=== PATIENT | male | born 1995 | race Caucasian/White ===

== ENCOUNTER 2019-07-26 16:35 | Emergency (ER) | payer OTHER ==
--- NOTE | 2019-07-26 17:44 | EDM.PDOC ---
ED HPI GENERAL MEDICAL PROBLEM - General Chief Complaint: Lower Extremity Injury/Pain Stated Complaint: LT ANKLE INJURY Time Seen by Provider: 07/26/19 17:31 Source of Information: Reports: Patient History Limitations: Reports: No Limitations - History of Present Illness INITIAL COMMENTS - FREE TEXT/NARRATIVE: patient is a 24-year-old male who presents with complaints of pain and swelling to his left ankle. He states he was stepping down off a truck at work and his ankle rolled; however, he is unsure which direction. The pain and swelling is located in the area of the lateral malleolus. he states he has not been able to bear weight since it occurred. She is able to move his toes but is not able to move his foot laterally. He denies any history of previous injury to that extremity. Left Ankle Pain Score (Numeric/FACES): 7 - Related Data Allergies Allergy/AdvReac Type Severity Reaction Status Date / Time Penicillins Allergy Airway Verified 07/26/19 17:19 Tightness Home Meds: Home Meds . [No Known Home Meds] 07/26/19 [History] Review of Systems - Review of Systems Review Of Systems: See Below Constitutional: Reports: No Symptoms Eyes: Reports: No Symptoms Ears: Reports: No Symptoms Nose: Reports: No Symptoms Mouth/Throat: Reports: No Symptoms Respiratory: Reports: No Symptoms Cardiovascular: Reports: No Symptoms GI/Abdominal: Reports: No Symptoms Genitourinary: Reports: No Symptoms Musculoskeletal: Reports: Joint Pain (left ankle), Joint Swelling (left ankle) Skin: Reports: No Symptoms Neurological: Reports: No Symptoms Psychiatric: Reports: No Symptoms ED EXAM, GENERAL - Physical Exam Exam: See Below Exam Limited By: No Limitations General Appearance: Alert, WD/WN, No Apparent Distress Head: Atraumatic, Normocephalic Respiratory/Chest: No Respiratory Distress, Lungs Clear, Normal Breath Sounds, No Accessory Muscle Use Cardiovascular: Normal Peripheral Pulses, Regular Rate, Rhythm, No Murmur Extremities: Other (swelling to left lateral malleoular area. No obvious deformity. CMS intact distal to the injury.) Psychiatric: Normal Affect, Normal Mood Skin Exam: Warm, Dry, Intact, Normal Color, No Rash Course - Vital Signs Last Recorded V/S: Last Vital Signs Temp Pulse 84 07/26/19 17:15 Resp 15 07/26/19 17:15 BP 119/74 07/26/19 17:15 Pulse Ox 97 07/26/19 17:15 - Orders/Labs/Meds Orders: Active Orders 24 hr Category Date Time Status Ankle 2V Lt [CR] Stat Exams 07/26/19 17:21 Stop Req Ankle Min 3V Lt [CR] Stat Exams 07/26/19 17:32 Ordered - Re-Assessments/Exams Free Text/Narrative Re-Assessment/Exam: I have ordered a 3 view x-ray of the left ankle. 07/26/19 17:44 There is no fracture visualized on the ankle x-ray. Films were also reviewed by Dr. Martinez. It is likely the patient has sprained the lateral ligaments of his ankle. We did apply an Sher wrap and the patient will be given crutches and orders for nonweightbearing. I did refer him to orthopedics either Dr. Wagner or Dr. Thompson. He will call Sunday to schedule an appointment. Departure - Departure Time of Disposition: 17:45 Disposition: Home, Self-Care 01 Condition: Fair Clinical Impression: Sprained ankle Qualifiers: Encounter type: initial encounter Involved ligament of ankle: unspecified ligament Laterality: left Qualified Code(s): S93.402A - Sprain of unspecified ligament of left ankle, initial encounter - Discharge Information *PRESCRIPTION DRUG MONITORING PROGRAM REVIEWED*: No *COPY OF PRESCRIPTION DRUG MONITORING REPORT IN PATIENT LANE: No Instructions: Ankle Sprain, [id number] Referrals: PCP,Not In Area [Primary Care Provider] - Jostin Wagner MD [Physician] - Harley Thompson DO [Physician] - Additional Instructions: You were seen in the emergency Department today for pain and swelling to your left ankle. X-rays did not reveal any fractures to the joint. It is likely that she sprained the lateral ligaments of your ankle. An Sher wrap has been applied. Leave this on for comfort. You may remove it to shower and then reapply. We do recommend that she remain nonweightbearing until seen and cleared by orthopedics. Please call Sunday to schedule an appointment with either Dr. Wagner or Dr. Thompson. Their phone numbers are listed below. You may use [id number] Tylenol or ibuprofen as needed for pain. We also recommend that you ice the area for 20 minutes every 2 hours. Be sure not to apply ice directly to the skin. Also it is recommended that you elevate the extremity above the level of heart whenever you are rest. If you should experience any new or worsening symptoms, please not hesitate to return to the emergency department. Sepsis Event Note - Evaluation Sepsis Screening Result: No Definite Risk - Focused Exam Vital Signs: Vital Signs Pulse Resp BP Pulse Ox 07/26/19 17:15 84 15 119/74 97 Date Exam was Performed: 07/26/19 Time Exam was Performed: 17:37 - My Orders Last 24 Hours: My Active Orders 07/26/19 17:32 Ankle Min 3V Lt [CR] Stat - Assessment/Plan Last 24 Hours: My Active Orders 07/26/19 17:32 Ankle Min 3V Lt [CR] Stat
--- NOTE | 2019-07-28 10:50 | CR ---
Left ankle: Three views of the left ankle were obtained. Comparison: No prior ankle exam. Ankle mortise is symmetric. Mild soft tissue swelling is identified. No acute fracture or other abnormality is appreciated. Impression: 1. Soft tissue swelling. 2. No acute bony abnormality is identified on left ankle exam. Diagnostic code #2 This report was dictated in [place] Standard Time
== END 2019-07-26 18:07 | disposition home or self-care (01) ==
LOC: JD.ED 16:35
DX: S93.402A Sprain of unspecified ligament of left ankle, initial encounter (principal); Z88.0 Allergy status to penicillin; V48.4XXA Person boarding or alighting a car injured in noncollision transport accident, initial encounter; Y92.89 Other specified places as the place of occurrence of the external cause; Y99.0 Civilian activity done for income or pay
CPT/HCPCS: 73610-26-LT; 73610-LT; 99282; 99283-25